=== PATIENT | male | born 1985 | race Caucasian/White ===

== ENCOUNTER 2018-02-22 20:46 | Emergency (ER) | payer BC ==
--- NOTE | 2018-02-22 21:35 | ER Report ---
History and Physical Time Seen By MD: 21:14 Hx. of Stated Complaint: patient has been working with glavinzed metal yesterday and today, he started getting body aches, nausea, fatigue, weakness, chills, feverish. HPI/ROS CHIEF COMPLAINT: fever, body aches, nausea HISTORY OF PRESENT ILLNESS: This is a 33 year old male. He was working with grinding some galvanized metal in his garage yesterday and today. Had started this morning, and started getting upset stomach, fever, and muscle aches. Concerned that he may have the flu or possibly zinc toxicilty from the work on galvanized steel. He has never had this in the past. Grinding only, no welding. Has normal vision. Symptoms seem to be a little less now. Exposure started at about 1000 and stopped grinding about 1230, but still in garage environment for several more hours. Breathing okay at this time. No chest pain. No abdominal pain. Normal bowel and bladder function today. No sick contacts. Allergies: Coded Allergies: No Known Drug Allergies (Unverified , 02/22/18) Home Meds No Active Prescriptions or Reported Meds Reviewed Nurses Notes: Yes Hx Substance Use Disorder: No Hx Alcohol Use: Yes (occassional) Constitutional Vital Sign - Last 24 Hours 02/22/18 20:58 Temp 100.7 Pulse 99 Resp 16 B/P (MAP) 116/78 Pulse Ox 90 Physical Exam General Appearance: The patient is alert, has no immediate need for airway protection and no current signs of toxicity. Eyes: Pupils equal and round no injection. ENT: Normal oral mucosa. Moist mucous membranes. Tympanic membranes are normal. Neck: Neck is supple and non tender. Respiratory: Chest is non tender, lungs are clear to auscultation. Cardiac: regular rate and rhythm Gastrointestinal: Abdomen is soft and non tender, no masses, bowel sounds normal. Musculoskeletal: Extremities have full range of motion. Skin: No rashes or lesions. DIFFERENTIAL DIAGNOSIS: After history and physical exam differential diagnosis was considered for nonspecific symptoms of nausea, headache, aches which may be due to a viral syndrome versus toxicity from the zinc similar to what welders would get Medical Decision Making Data Points Result Diagram: 02/22/18214602/22/182146 Laboratory Hematology Test 02/22/18 20:56 3/31/18 21:47 Urine Color Yellow Urine Clarity Clear Urine pH 5.0 pH (4.8-9.5) Urine Specific [place] 1.011 Urine Protein Negative mg/dL (NEGATIVE) Urine Glucose (UA) Negative mg/dL (NEGATIVE) Urine Ketones Negative mg/dL (NEGATIVE) Urine Blood Negative (NEGATIVE) Urine Nitrite Negative (NEGATIVE) Urine Bilirubin Negative (NEGATIVE) Urine Urobilinogen Negative mg/dL (0.2-1.9) Urine Leukocyte Esterase Negative (NEGATIVE) Urine RBC 1 /HPF (0-2/HPF) Urine WBC <1 /HPF (0-5/HPF) Urine Squamous Epithelial Cells None /LPF (</=FEW) Urine Bacteria Negative /HPF (NONE-FEW) Urine Mucus None /HPF (NONE-FEW) Influenza Virus Type A (PCR) Negative (NEGATIVE) Influenza Virus Type B (PCR) Negative (NEGATIVE) Red Blood Count 5.33 M/uL (4.00-5.60) Mean Corpuscular Volume 85.5 fL (80.0-96.0) Mean Corpuscular Hemoglobin 30.4 pg (26.0-33.0) Mean Corpuscular Hemoglobin Concent 35.5 g/dL (32.0-36.0) Red Cell Distribution Width 13.1 % (11.5-14.5) Mean Platelet Volume 7.2 fL (7.2-11.1) Neutrophils (%) (Auto) 89.1 % (39.4-72.5) Lymphocytes (%) (Auto) 4.8 % (17.6-49.6) Monocytes (%) (Auto) 5.7 % (4.1-12.4) Eosinophils (%) (Auto) 0.2 % (0.4-6.7) Basophils (%) (Auto) 0.2 % (0.3-1.4) Nucleated RBC Relative Count (auto) 0.0 /100WBC Neutrophils # (Auto) 7.4 K/uL (2.0-7.4) Lymphocytes # (Auto) 0.4 K/uL (1.3-3.6) Monocytes # (Auto) 0.5 K/uL (0.3-1.0) Eosinophils # (Auto) 0.0 K/uL (0.0-0.5) Basophils # (Auto) 0.0 K/uL (0.0-0.1) Nucleated RBC Absolute Count (auto) 0.00 K/uL Sodium Level 138 mmol/L (137-145) Potassium Level 3.6 mmol/L (3.5-5.0) Chloride Level 100 mmol/L (98-107) Carbon Dioxide Level 24 mmol/L (22-30) Blood Urea Nitrogen 15 mg/dl (9-21) Creatinine 1.10 mg/dl (0.66-1.25) Glomerular Filtration Rate Calc > 60.0 Random Glucose 121 mg/dl (75-110) Calcium Level 9.2 mg/dl (8.4-10.2) Total Bilirubin 1.1 mg/dl (0.2-1.3) Aspartate Amino Transf (AST/SGOT) 52 U/L (0-35) Alanine Aminotransferase (ALT/SGPT) 77 U/L (0-56) Alkaline Phosphatase 62 U/L (0-126) Total Protein 7.1 gm/dl (6.3-8.2) Albumin 4.2 g/dl (3.5-5.0) Chemistry Test 02/22/18 20:56 02/22/18 21:47 Urine Color Yellow Urine Clarity Clear Urine pH 5.0 pH (4.8-9.5) Urine Specific [place] 1.011 Urine Protein Negative mg/dL (NEGATIVE) Urine Glucose (UA) Negative mg/dL (NEGATIVE) Urine Ketones Negative mg/dL (NEGATIVE) Urine Blood Negative (NEGATIVE) Urine Nitrite Negative (NEGATIVE) Urine Bilirubin Negative (NEGATIVE) Urine Urobilinogen Negative mg/dL (0.2-1.9) Urine Leukocyte Esterase Negative (NEGATIVE) Urine RBC 1 /HPF (0-2/HPF) Urine WBC <1 /HPF (0-5/HPF) Urine Squamous Epithelial Cells None /LPF (</=FEW) Urine Bacteria Negative /HPF (NONE-FEW) Urine Mucus None /HPF (NONE-FEW) Influenza Virus Type A (PCR) Negative (NEGATIVE) Influenza Virus Type B (PCR) Negative (NEGATIVE) White Blood Count 8.3 k/uL (4.5-11.0) Red Blood Count 5.33 M/uL (4.00-5.60) Hemoglobin 16.2 g/dL (14.0-18.0) Hematocrit 45.5 % (42.0-52.0) Mean Corpuscular Volume 85.5 fL (80.0-96.0) Mean Corpuscular Hemoglobin 30.4 pg (26.0-33.0) Mean Corpuscular Hemoglobin Concent 35.5 g/dL (32.0-36.0) Red Cell Distribution Width 13.1 % (11.5-14.5) Platelet Count 184 K/uL (150-450) Mean Platelet Volume 7.2 fL (7.2-11.1) Neutrophils (%) (Auto) 89.1 % (39.4-72.5) Lymphocytes (%) (Auto) 4.8 % (17.6-49.6) Monocytes (%) (Auto) 5.7 % (4.1-12.4) Eosinophils (%) (Auto) 0.2 % (0.4-6.7) Basophils (%) (Auto) 0.2 % (0.3-1.4) Nucleated RBC Relative Count (auto) 0.0 /100WBC Neutrophils # (Auto) 7.4 K/uL (2.0-7.4) Lymphocytes # (Auto) 0.4 K/uL (1.3-3.6) Monocytes # (Auto) 0.5 K/uL (0.3-1.0) Eosinophils # (Auto) 0.0 K/uL (0.0-0.5) Basophils # (Auto) 0.0 K/uL (0.0-0.1) Nucleated RBC Absolute Count (auto) 0.00 K/uL Glomerular Filtration Rate Calc > 60.0 Calcium Level 9.2 mg/dl (8.4-10.2) Total Bilirubin 1.1 mg/dl (0.2-1.3) Aspartate Amino Transf (AST/SGOT) 52 U/L (0-35) Alanine Aminotransferase (ALT/SGPT) 77 U/L (0-56) Alkaline Phosphatase 62 U/L (0-126) Total Protein 7.1 gm/dl (6.3-8.2) Albumin 4.2 g/dl (3.5-5.0) Urinalysis Test 02/22/18 20:56 Urine Color Yellow Urine Clarity Clear Urine pH 5.0 pH (4.8-9.5) Urine Specific [place] 1.011 Urine Protein Negative mg/dL (NEGATIVE) Urine Glucose (UA) Negative mg/dL (NEGATIVE) Urine Ketones Negative mg/dL (NEGATIVE) Urine Blood Negative (NEGATIVE) Urine Nitrite Negative (NEGATIVE) Urine Bilirubin Negative (NEGATIVE) Urine Urobilinogen Negative mg/dL (0.2-1.9) Urine Leukocyte Esterase Negative (NEGATIVE) Urine RBC 1 /HPF (0-2/HPF) Urine WBC <1 /HPF (0-5/HPF) Urine Squamous Epithelial Cells None /LPF (</=FEW) Urine Bacteria Negative /HPF (NONE-FEW) Urine Mucus None /HPF (NONE-FEW) EKG/Imaging Imaging 2 VIEWS CHEST INDICATION: Fever and aches. COMPARISON: 01/08/2013. FINDINGS: Cardiomediastinal silhouette and pulmonary vessels within normal limits. There is no focal infiltrate or lobar consolidation. There is no pneumothorax or pleural effusion. No nodule. Upper abdomen is unremarkable. No acute bony abnormality. IMPRESSION: 1. No acute cardiopulmonary process. Report Dictated By: William Handy at 02/22/2018 10:46 PM ED Course/Re-evaluation ED Course Labs showed a mild increase in AST and ALT, but normal bili and alk phos. Mild increase in glucose. Labs otherwise normal. Recommended avoiding further exposure, use of antacids and over the counter analgesics. Decision to Disposition Date: Feb 22, 2018 Decision to Disposition Time: 23:38 Depart Departure Latest Vital Signs Vital Signs Date Time Temp Pulse Resp B/P (MAP) Pulse Ox O2 Delivery O2 Flow Rate FiO2 02/22/18 20:58 100.7 99 16 116/78 90 Impression: Primary Impression: Nausea & vomiting Additional Impression: Muscle ache Condition: Improved Disposition: HOME OR SELF-CARE New Scripts No Active Prescriptions or Reported Meds Patient Instructions: Acute Nausea and Vomiting (ED), Musculoskeletal Pain (ED) Additional Instructions: Symptoms tonight could be due to exposure to the zinc particulates from grinding on galvanized steel, but could be nonspecific due to a viral infection as well. No major problems noted on blood work tonight. Follow-up with primary care for re-evaluation of liver testing and blood glucose. [id number] medications like antacids or gas medicines are fine to take. So are medicines like Tylenol or Ibuprofen. Return as needed for re-evaluation if symptoms are worsening. Problem Qualifiers Primary Impression: Nausea & vomiting Vomiting type: unspecified Vomiting Intractability: non-intractable Qualified Codes: R11.2 - Nausea with vomiting, unspecified ROSANNA CRAIG MD Feb 22, 2018 21:35
[2018-02-22 21:55] LABS: PLATELET COUNT, AUTOMATED 184 K/uL (150-450)
--- NOTE | 2018-02-22 22:52 | RADIOLOGY IMAGING REPORT ---
FACILITY: [facility] PATIENT NAME: Mateo Holman : 1985 MR: [id number] V: [id number] EXAM DATE: ORDERING PHYSICIAN: ROSANNA CRAIG TECHNOLOGIST: Location: [facility] Patient: Mateo Holman : 1985 Visit/Account:[id number] Date of Sevice: 02/22/2018 2 VIEWS CHEST INDICATION: Fever and aches. COMPARISON: 01/08/2013. FINDINGS: Cardiomediastinal silhouette and pulmonary vessels within normal limits. There is no focal infiltrate or lobar consolidation. There is no pneumothorax or pleural effusion. No nodule. Upper abdomen is unremarkable. No acute bony abnormality. IMPRESSION: 1. No acute cardiopulmonary process. Report Dictated By: William Handy at 02/22/2018 10:46 PM Report E-Signed By: William Handy at 02/22/2018 10:48 PM WSN:[id number]
[2018-02-22 23:15] VITALS: BP 112/74
== END 2018-02-22 23:54 | disposition home or self-care (01) ==
LOC: ER 21:11
DX: M79.1 Myalgia (principal); R11.2 Nausea with vomiting, unspecified
CPT/HCPCS: 71046; 81001; 82040; 82247; 82310; 82374; 82435; 82565; 82947; 84075; 84132; 84155; 84295; 84450; 84460; 84520; 85025; 87502; 99283

== ENCOUNTER → 2018-10-09 | Outpatient (CLI) | payer BC ==
--- NOTE | 2018-10-09 14:21 | RADIOLOGY IMAGING REPORT ---
FACILITY: [facility] PATIENT NAME: Mateo Holman : 1985 MR: [id number] V: [id number] EXAM DATE: ORDERING PHYSICIAN: JOSÉ BOSE TECHNOLOGIST: Location: [facility] [place] Patient: Mateo Holman : 1985 Visit/Account:[id number] Date of Sevice: 10/09/2018 Exam: ACUTE ABDOMEN SERIES 3 VIEW Indication: , Abdominal pain, bright red blood per rectum Comparison: Chest x-ray 02/22/2018 Findings: Cardiac mediastinal contours are within normal limits. Lungs are clear. There is no evide nce of pneumoperitoneum. There is a nonobstructive bowel gas pattern present. Moderate amount stool is noted within the colon . No abnormal masses or calcifications are identified. No bony abnormalities are seen. IMPRESSION: 1. Mild constipation, otherwise negative abdominal series Report Dictated By: Ronald Jason at 10/09/2018 2:15 PM Report E-Signed By: Ronald Jason at 10/09/2018 2:16 PM [email or web address]
== END ==
LOC: RAD 12:35
PROVIDERS: ATTEND Family Medicine
DX: K59.00 Constipation, unspecified (principal); R10.817 Generalized abdominal tenderness; K62.5 Hemorrhage of anus and rectum
CPT/HCPCS: 74022; 82274; 83630; 87045; 87177; 87269